=== PATIENT | female | born 1955 | race African-American/Black ===

== ENCOUNTER 2016-08-04 07:44 | Day surgery (SDC) | payer OTHER, MEDICAID ==
[~2016-08-04] VITALS: Ht 149.9 cm; Wt 68.0 kg
[~2016-08-04 07:44] MED LIST: ALBU90AE IH; AMLO2.5T45 PO; CHOL100046 PO; DIPH25CA83 PO; MULT-1146 PO; NAPR-681 PO; OMEG1CAP17 PO; ZOLP10TA6 PO
[2016-08-04 08:55] LABS: BASOPHILS % 0.8 % (0.0-2.0); EOSINOPHILS % 4.1 % (0.0-5.0); HEMATOCRIT. 43.9 % (36.0-48.0); LYMPHOCYTES % 25.8 % (20.0-50.0); MEAN CORPUSCULAR HEMOGLOBIN 30.3 pg (28.0-32.0); MEAN CORPUSCULAR HGB CONC 34.1 g/dL (31.0-37.0); MEAN CORPUSCULAR VOLUME 88.8 fL (81.0-99.0); MEAN PLATELET VOLUME 9.6 fl (7.4-10.4); MONOCYTES % 14.3 % (2.0-8.0); PLATELET 168 x1000/uL (130-400); RED BLOOD CELL COUNT 4.95 mill/uL (4.2-5.4); RED CELL DISTRIBUTION WIDTH 14.4 % (11.6-14.6); WHITE BLOOD COUNT 9.5 x1000/uL (4.5-11.0)
[2016-08-04] MEDS ORDERED: LACTATED RINGERS 1,000 ML IV SCH (09:00)
[2016-08-04 09:04] LABS: INR 1.1; PROTHROMBIN TIME 11.3 sec
[2016-08-04 09:06] LABS: CLARITY URINE CLEAR (CLEAR); COLOR URINE YELLOW (YELLOW); GLUCOSE URINE NEGATIVE (NEGATIVE); KETONES URINE NEGATIVE (NEGATIVE); LEUKOCYTE ESTERASE URINE TRACE (NEGATIVE); NITRITE URINE NEGATIVE (NEGATIVE); OCCULT BLOOD URINE NEGATIVE (NEGATIVE); PH URINE 6.5 (4.5-8.0); PROTEIN URINE NEGATIVE (NEGATIVE); SPECIFIC GRAVITY URINE 1.005 (1.005-1.030); UROBILINOGEN URINE 0.2 E.U./dL (0.2-1.0)
[2016-08-04 09:07] LABS: ANION GAP 15; CALCIUM 9.2 mg/dL (8.5-10.1); CARBON DIOXIDE 26 mEq/L (21-32); CHLORIDE 108 mEq/L (98-107); INDEX HEMOLYSI 1 (1-3); INDEX ICTERIC 1 (1-4); INDEX LIPEMIC 1 (1-3); UREA NITROGEN BLOOD 9 mg/dL (7-21); eGFR > 60 mL/min (>60)
[2016-08-04 09:54] LABS: BACTERIA URINE TRACE; RBC URINE 0-2 /hpf (0-2)
[2016-08-04 09:55] LABS: SQUAMOUS EPITHELIAL CELL URINE 1+ /lpf (RARE/1+); UCG SCREEN NEGATIVE
[2016-08-04] MEDS ORDERED: ONDANSETRON HCL 4MG/2ML VIAL ONE (10:28)
[2016-08-04] MEDS ORDERED: CEFAZOLIN SODIUM 1000MG/VIAL ONE (10:28)
[2016-08-04] MEDS ORDERED: DEXAMETHASONE 4MG/ML 1ML VIAL ONE (10:28)
[2016-08-04] MEDS ORDERED: LABETALOL HCL 5MG/ML VIAL 20ML IV ONE (10:30)
[2016-08-04] MEDS ORDERED: ONDANSETRON HCL 4MG/2ML VIAL IV PRN (10:45)
[2016-08-04] MEDS ORDERED: MEPERIDINE HCL/PF 25MG/ML CPJ IV PRN (10:45)
[2016-08-04] MEDS ORDERED: LABETALOL HCL 20MG/4ML CARPUJECT IV PRN (10:45)
[2016-08-04] MEDS: HYDROMORPHONE HCL/PF 2MG/ML CPJ IV PRN ×3 (11:21→11:40)
[2016-08-04 11:40] VITALS: BP 142/64
== END 2016-08-04 14:20 | disposition home or self-care (01) ==
LOC: OR 07:44
PROVIDERS: ATTEND Obstetrics & Gynecology Obstetrics
DX: N95.0 Postmenopausal bleeding (principal); I10 Essential (primary) hypertension; N88.8 Other specified noninflammatory disorders of cervix uteri; F17.210 Nicotine dependence, cigarettes, uncomplicated
CPT/HCPCS: 36415; 58120; 80048; 81001; 81025; 85025; 85610; 85730; 88305; 93005; J0690; J1100; J1170; J2405; J3490; J7120

== ENCOUNTER → 2017-05-18 | Outpatient (CLI) | payer MEDICARE, MEDICAID | END | disposition home or self-care (01) | LOC: US 08:17 | PROVIDERS: ATTEND Internal Medicine Gastroenterology | DX: R10.9 Unspecified abdominal pain (principal); B19.20 Unspecified viral hepatitis C without hepatic coma | CPT/HCPCS: 76700 ==

== ENCOUNTER 2017-11-05 01:48 | Emergency (ER) | payer OTHER, MEDICAID ==
[~2017-11-05] VITALS: Ht 149.9 cm; Wt 63.0 kg
[2017-11-05] MEDS ORDERED: KETOROLAC 30MG/ML VIAL IM ONE (05:15)
[2017-11-05 06:43] VITALS: BP 150/72
== END 2017-11-05 10:12 | disposition home or self-care (01) ==
LOC: ER 10:10
DX: M54.41 Lumbago with sciatica, right side (principal); G89.29 Other chronic pain
CPT/HCPCS: 96372; 99283; J1885

== ENCOUNTER → 2018-11-10 | Outpatient (CLI) | payer MEDICARE, MEDICAID | END | disposition home or self-care (01) | LOC: US 07:58 | PROVIDERS: ATTEND Internal Medicine Gastroenterology | DX: B18.2 Chronic viral hepatitis C (principal); R10.9 Unspecified abdominal pain | CPT/HCPCS: 76700 ==

== ENCOUNTER → 2019-01-11 | Outpatient (CLI) | payer MEDICARE, MEDICAID ==
[~2019-01-11] MED LIST changes: +ATOR10TA69 MT; +FURO40TA5 MT; +LOSA50TA41 MT; +LUBI24CA5 MT; +TOLT4CAP13 MT
== END | disposition home or self-care (01) ==
LOC: MRI 11:03
PROVIDERS: ATTEND Internal Medicine Nephrology
DX: M51.36 Other intervertebral disc degeneration, lumbar region (principal); M48.061 Spinal stenosis, lumbar region without neurogenic claudication; M41.86 Other forms of scoliosis, lumbar region
CPT/HCPCS: 72148

== ENCOUNTER 2019-01-19 08:06 | Inpatient (IN) | payer MEDICARE, MEDICAID ==
[~2019-01-19] VITALS: Ht 149.9 cm; Wt 56.7 kg
[2019-01-19] MEDS ORDERED: HYDROCODONE/ACETAMINOPHEN 5/325MG TABLET PO ONE (10:15)
[2019-01-19] MEDS ORDERED: ONDANSETRON 4MG ODT PO ONE (10:15)
[2019-01-19 10:39] LABS: CLARITY URINE TURBID (CLEAR); COLOR URINE YELLOW (YELLOW); KETONES URINE NEGATIVE (NEGATIVE); LEUKOCYTE ESTERASE URINE 3+ (NEGATIVE); NITRITE URINE NEGATIVE (NEGATIVE); OCCULT BLOOD URINE 2+ (NEGATIVE); PH URINE 6.5 (4.5-8.0); PROTEIN URINE 2+ (NEGATIVE); SPECIFIC GRAVITY URINE 1.008 (1.005-1.030); UROBILINOGEN URINE 0.2 E.U./dL (0.2-1.0)
[2019-01-19 10:55] LABS: BASOPHILS % 0.4 % (0.0-2.0); EOSINOPHILS % 0.3 % (0.0-5.0); HEMATOCRIT. 31.5 % (36.0-48.0); HEMOGLOBIN. 10.7 g/dL (12.0-16.0); LYMPHOCYTES % 8.3 % (20.0-50.0); MEAN CORPUSCULAR HEMOGLOBIN 30.6 pg (28.0-32.0); MEAN CORPUSCULAR VOLUME 89.5 fL (81.0-99.0); MEAN PLATELET VOLUME 7.8 fl (7.4-10.4); MONOCYTES % 13.2 % (2.0-8.0); NEUTROPHILS % 77.8 % (40.0-76.0); PLATELET 408 x1000/uL (130-400); RED BLOOD CELL COUNT 3.51 mill/uL (4.2-5.4); RED CELL DISTRIBUTION WIDTH 16.3 % (11.6-14.6)
[2019-01-19 11:02] LABS: CHLORIDE 104 mEq/L (98-107)
[2019-01-19] MEDS ORDERED: CEFTRIAXONE 1 G PREMIX 50 ML IV ONE (13:15)
[2019-01-19] MEDS ORDERED: CEFTRIAXONE 1,000 MG in DEXTROSE 5% WATER 50 ML IV NR (14:00)
[2019-01-19] MEDS ORDERED: NITROGLYCERIN 0.4MG TABLET SL SL PRN (15:45)
[2019-01-19] MEDS ORDERED: CLONIDINE 0.1MG TABLET PO PRN (15:45)
[2019-01-19] MEDS ORDERED: KETOROLAC 15MG/ML VIAL IV PRN (15:45)
[2019-01-19] MEDS ORDERED: MAGNESIUM/ALUMINUM HYDROXIDE/SIMETHICONE 30ML UDC PO PRN (15:45)
[2019-01-19] MEDS ORDERED: DOCUSATE SODIUM 100MG CAPSULE PO PRN (15:45)
[2019-01-19] MEDS ORDERED: ONDANSETRON HCL 4MG/2ML INJ IV PRN (15:45)
[2019-01-19] MEDS ORDERED: ZOLPIDEM TARTRATE 5MG TABLET PO PRN (15:45)
[2019-01-19] MEDS ORDERED: GUAIFENESIN 200MG/10ML SUGAR FREE UDC PO PRN (15:45)
[2019-01-19] MEDS ORDERED: TRAMADOL 50MG TABLET PO PRN (15:45)
[2019-01-19] MEDS ORDERED: IPRATROPIUM/ALBUTEROL 0.5-3(2.5)MG/3ML NEB NEB PRN (15:45)
[2019-01-19] MEDS ORDERED: ACETAMINOPHEN 325MG TABLET PO PRN (15:45)
[2019-01-19] MEDS ORDERED: LORAZEPAM 0.5MG TABLET PO PRN (15:45)
[2019-01-19 16:00] VITALS: BP 122/60
[2019-01-19 17:07] VITALS: BP 128/67
[2019-01-19 17:46] LABS: FOLIC ACID (FOLATE) SERUM 7.7 ng/mL (>5.38)
[2019-01-19 17:51] LABS: *AMPHETAMINES SCREEN URINE NEGATIVE (NEGATIVE); *BARBITURATES SCREEN URINE NEGATIVE (NEGATIVE)
[2019-01-19 17:52] LABS: *BENZODIAZEPINES SCREEN URINE NEGATIVE (NEGATIVE); *COCAINE SCREEN URINE NEGATIVE (NEGATIVE); CANNABINOID URINE SCREEN PRESUMTIVE POSITIVE (NEGATIVE); METHADONE URINE SCREEN NEGATIVE (NEGATIVE); OPIATES URINE SCREEN PRESUMTIVE POSITIVE (NEGATIVE); PHENCYCLIDINE URINE SCREEN NEGATIVE (NEGATIVE)
[2019-01-19] MEDS: ENOXAPARIN 40MG/0.4ML SYR SUBCUT SCH (18:30)
[2019-01-19] MEDS ORDERED: DEXTROSE 50% WATER 50ML SYRINGE IV PRN (18:45)
[2019-01-19 20:00] VITALS: BP 117/62
[2019-01-19] MEDS: FAMOTIDINE 20MG TABLET PO SCH (20:53)
[2019-01-19] MEDS: BLOOD SUGAR DIAGNOSTIC STRIP TEST SCH (20:59)
[2019-01-19] MEDS: INSULIN LISPRO 100 UNITS/ML SUBCUT SCH (21:00)
[2019-01-20 02:46] VITALS: BP 116/55
[2019-01-20 04:00] VITALS: BP 125/59
[2019-01-20] MEDS: MORPHINE SULFATE 2 MG/ML CPJ (NOT FOR IM USE) IV PRN ×2 (05:01→09:11)
[2019-01-20] MEDS: BLOOD SUGAR DIAGNOSTIC STRIP TEST SCH ×4 (06:44→21:33)
[2019-01-20] MEDS: INSULIN LISPRO 100 UNITS/ML SUBCUT SCH ×4 (07:50→21:28)
[2019-01-20 08:00] VITALS: BP 135/63
[2019-01-20] MEDS: FAMOTIDINE 20MG TABLET PO SCH ×2 (09:10→20:34)
[2019-01-20] MEDS: BACLOFEN 10MG TABLET PO SCH ×3 (09:11→21:29)
[2019-01-20] MEDS: PREGABALIN 50 MG CAPSULE PO SCH ×2 (10:10→20:33)
[2019-01-20 12:00] VITALS: BP 133/64
[2019-01-20] MEDS ORDERED: CEFTRIAXONE 1,000 MG in DEXTROSE 5% WATER 50 ML IV SCH (13:00)
[2019-01-20 16:00] VITALS: BP 126/65
[2019-01-20] MEDS: ENOXAPARIN 40MG/0.4ML SYR SUBCUT SCH (17:00)
[2019-01-20 20:00] VITALS: BP 119/59
[2019-01-20] MEDS ORDERED: POTASSIUM CHLORIDE INJ 20 MEQ in DEXT 5% WATER 500 ML IV NR (21:30)
[2019-01-21] VITALS: BP 147/73
[2019-01-21 04:00] VITALS: BP 141/70
[2019-01-21] MEDS: BACLOFEN 10MG TABLET PO SCH ×5 (05:56→21:35)
[2019-01-21] MEDS: BLOOD SUGAR DIAGNOSTIC STRIP TEST SCH ×4 (07:37→21:34)
[2019-01-21] MEDS: INSULIN LISPRO 100 UNITS/ML SUBCUT SCH ×4 (07:37→21:34)
[2019-01-21 08:00] VITALS: BP 115/64
[2019-01-21] MEDS: FAMOTIDINE 20MG TABLET PO SCH ×2 (09:34→20:57)
[2019-01-21] MEDS: PREGABALIN 50 MG CAPSULE PO SCH ×2 (09:34→20:57)
[2019-01-21 12:00] VITALS: BP 103/53
[2019-01-21] MEDS: CEFTRIAXONE 1,000 MG in DEXTROSE 5% WATER 50 ML IV SCH (15:33)
[2019-01-21 16:00] VITALS: BP 83/56
[2019-01-21] MEDS: ENOXAPARIN 40MG/0.4ML SYR SUBCUT SCH ×2 (16:49→16:56)
[2019-01-21] MEDS: DEXAMETHASONE 4MG/ML 1ML VIAL IV SCH (18:12)
[2019-01-21 20:00] VITALS: BP 120/70
[2019-01-22] VITALS: BP 132/68
[2019-01-22] MEDS: MORPHINE SULFATE 2 MG/ML CPJ (NOT FOR IM USE) IV PRN (00:41)
[2019-01-22] MEDS: DEXAMETHASONE 4MG/ML 1ML VIAL IV SCH ×3 (00:41→11:43)
[2019-01-22 04:00] VITALS: BP 130/64
[2019-01-22] MEDS: BACLOFEN 10MG TABLET PO SCH ×2 (05:56→13:31)
[2019-01-22] MEDS: BLOOD SUGAR DIAGNOSTIC STRIP TEST SCH ×2 (07:52→12:21)
[2019-01-22 08:00] VITALS: BP 131/71
[2019-01-22] MEDS: CEFTRIAXONE 1,000 MG in DEXTROSE 5% WATER 50 ML IV SCH (08:00)
[2019-01-22] MEDS: PREGABALIN 50 MG CAPSULE PO SCH (08:01)
[2019-01-22] MEDS: FAMOTIDINE 20MG TABLET PO SCH (08:01)
[2019-01-22] MEDS: INSULIN LISPRO 100 UNITS/ML SUBCUT SCH ×2 (08:12→12:23)
[2019-01-22 12:00] VITALS: BP 135/72
[2019-01-22 13:54] VITALS: BP 138/75
[2019-01-22 14:12] LABS: A/G RATIO 0.8 (0.7-1.7); ALBUMIN 2.7 g/dL (2.9-4.4); ALPHA-1-GLOBULIN 0.3 g/dL (0.0-0.4); ALPHA-2-GLOBULIN 1.2 g/dL (0.4-1.0); BETA GLOBULIN 0.8 g/dL (0.7-1.3); GAMMA GLOBULINS 1.3 g/dL (0.4-1.8); GLOBULIN TOTAL 3.6 g/dL (2.2-3.9); M-SPIKE Not Observed g/dL (Not Observed); TOTAL PROTEIN SERUM 6.3 g/dL (6.0-8.5)
== END 2019-01-22 14:32 | disposition home or self-care (01) | DRG 551 ==
LOC: ER 08:06 → 6EST 13:11 → ENRESERV 14:48
PROVIDERS: ADMIT Internal Medicine; ATTEND Internal Medicine
DX: M48.061 Spinal stenosis, lumbar region without neurogenic claudication (principal); E43 Unspecified severe protein-calorie malnutrition; N39.0 Urinary tract infection, site not specified; R65.10 Systemic inflammatory response syndrome (SIRS) of non-infectious origin without acute organ dysfunction; M47.816 Spondylosis without myelopathy or radiculopathy, lumbar region; M51.26 Other intervertebral disc displacement, lumbar region; M51.27 Other intervertebral disc displacement, lumbosacral region; D64.9 Anemia, unspecified; E11.51 Type 2 diabetes mellitus with diabetic peripheral angiopathy without gangrene; I10 Essential (primary) hypertension; F17.210 Nicotine dependence, cigarettes, uncomplicated; E78.00 Pure hypercholesterolemia, unspecified; B96.20 Unspecified Escherichia coli [E. coli] as the cause of diseases classified elsewhere; R80.9 Proteinuria, unspecified; M47.817 Spondylosis without myelopathy or radiculopathy, lumbosacral region; E11.40 Type 2 diabetes mellitus with diabetic neuropathy, unspecified; Z79.899 Other long term (current) drug therapy; Z68.25 Body mass index [BMI] 25.0-25.9, adult
CPT/HCPCS: 36415; 72148; 72195; 76770; 80061; 80305; 81003; 82607; 82746; 82962; 83036; 83540; 83550; 84155; 84165; 87077; 87186; 93005; 93970; 96365; 99285; C1893; J0696; J1100; J1650; J1815; J1885; J2270; J3480; J7060; Q0162

== ENCOUNTER → 2019-03-14 | Outpatient (CLI) | payer MEDICARE, MEDICAID | END | disposition home or self-care (01) | LOC: CT 09:39 | PROVIDERS: ATTEND Internal Medicine Nephrology | DX: N32.9 Bladder disorder, unspecified (principal) | CPT/HCPCS: 72193 ==

== ENCOUNTER 2019-03-27 11:12 | Day surgery (SDC) | payer MEDICARE, MEDICAID ==
[~2019-03-27] VITALS: Ht 149.9 cm; Wt 48.5 kg
[2019-03-27] MEDS ORDERED: HYDROCODONE/ACETAMINOPHEN 5/325MG TABLET PO PRN ×2 (11:15→14:30)
[2019-03-27] MEDS ORDERED: MIDAZOLAM HCL 2 MG/2 ML VIAL ONE (11:54)
[2019-03-27] MEDS ORDERED: FENTANYL CITRATE/PF 50MCG/ML 2ML VIAL ONE ×2 (11:54→13:52)
[2019-03-27] MEDS ORDERED: PROPOFOL 200MG/20ML VIAL IV ONE (11:54)
[2019-03-27 12:02] LABS: BASOPHILS % 0.8 % (0.0-2.0); EOSINOPHILS % 0.2 % (0.0-5.0); HEMATOCRIT. 28.4 % (36.0-48.0); HEMOGLOBIN. 9.1 g/dL (12.0-16.0); MEAN CORPUSCULAR HEMOGLOBIN 27.8 pg (28.0-32.0); MEAN CORPUSCULAR VOLUME 86.5 fL (81.0-99.0); MEAN PLATELET VOLUME 7.2 fl (7.4-10.4); MONOCYTES % 9.3 % (2.0-8.0); NEUTROPHILS % 79.7 % (40.0-76.0); PLATELET 484 x1000/uL (130-400); RED BLOOD CELL COUNT 3.29 mill/uL (4.2-5.4); RED CELL DISTRIBUTION WIDTH 17.8 % (11.6-14.6)
[2019-03-27] MEDS ORDERED: BACITRACIN 15GM TUBE TOP ONE (12:02)
[2019-03-27] MEDS ORDERED: LIDOCAINE HCL 1% 20ML VIAL (Pyxis) INJ ONE (12:02)
[2019-03-27] MEDS ORDERED: HEPARIN SODIUM 1,000 UNIT/1ML VIAL IV ONE (12:03)
[2019-03-27] MEDS ORDERED: THROMBIN (BOVINE) 5000 UNITS/VIAL TOP ONE ×2 (12:03→12:04)
[2019-03-27 12:04] LABS: CHLORIDE 104 mEq/L (98-107)
[2019-03-27] MEDS ORDERED: NORMAL SALINE 0.9% 10 ML SYR ONE (12:04)
[2019-03-27] MEDS ORDERED: BUPIVACAINE HCL/PF 0.5% (5MG/ML) 10ML ONE ×3 (12:04→13:32)
[2019-03-27 12:05] LABS: INR 1.1; PARTIAL THROMBOPLASTIN TIME 34.3 sec (23.4-31.0); PROTHROMBIN TIME 11.4 sec (9.6-11.0)
[2019-03-27] MEDS ORDERED: BACITRACIN 50,000 UNITS/VIAL ONE (12:05)
[2019-03-27] MEDS ORDERED: MIRT15TA6 PO (13:00)
[2019-03-27] MEDS ORDERED: DAPA5TAB PO (13:00)
[2019-03-27] MEDS ORDERED: ROSU20TA2 PO (13:00)
[2019-03-27] MEDS ORDERED: OXYB5TAB16 PO (13:00)
[2019-03-27] MEDS ORDERED: HEPARIN 1000 UNITS/ML 10ML ONE (13:52)
[2019-03-27] MEDS ORDERED: ESMOLOL HCL 10MG/ML 10ML VIAL IV ONE (13:52)
[2019-03-27] MEDS ORDERED: PHENYLEPHRINE HCL 10 MG/ML 1ML (IV VIAL) IV ONE (13:52)
[2019-03-27] MEDS ORDERED: ONDANSETRON HCL 4MG/2ML INJ IV PRN (14:30)
[2019-03-27] MEDS: FENTANYL CITRATE/PF 50MCG/ML 2ML VIAL IV PRN ×4 (14:35→15:02)
[2019-03-27 16:20] VITALS: BP 100/56
== END 2019-03-27 16:40 | disposition home or self-care (01) ==
LOC: OR 11:12
PROVIDERS: ATTEND Surgery Vascular Surgery
DX: I70.262 Atherosclerosis of native arteries of extremities with gangrene, left leg (principal); E78.5 Hyperlipidemia, unspecified; I10 Essential (primary) hypertension; E11.9 Type 2 diabetes mellitus without complications; C53.9 Malignant neoplasm of cervix uteri, unspecified; F17.200 Nicotine dependence, unspecified, uncomplicated; Z79.899 Other long term (current) drug therapy; Z98.890 Other specified postprocedural states
CPT/HCPCS: 35302; 35371; 35372; 36415; 80048; 82962; 85025; 85610; 85730; 88304; 88311; 93005; J1644; J2250; J2370; J2704; J3010; J3490

== ENCOUNTER 2019-04-10 12:08 | Inpatient (IN) | payer MEDICARE, MEDICAID ==
[~2019-04-10] VITALS: Ht 149.9 cm; Wt 68.1 kg
[~2019-04-10 12:08] MED LIST changes: +DAPA5TAB PO; +MIRT15TA6 PO; +OXYB5TAB16 PO; +ROSU20TA2 PO
[2019-04-10 13:42] VITALS: BP 126/58
[2019-04-10] MEDS ORDERED: LORAZEPAM 0.5MG TABLET PO PRN (15:30)
[2019-04-10] MEDS ORDERED: CLONIDINE 0.1MG TABLET PO PRN (15:30)
[2019-04-10] MEDS ORDERED: ONDANSETRON HCL 4MG/2ML INJ IV PRN (15:30)
[2019-04-10] MEDS ORDERED: ZOLPIDEM TARTRATE 5MG TABLET PO PRN (15:30)
[2019-04-10] MEDS ORDERED: DIPHENHYDRAMINE 50MG/ML VIAL IV PRN (15:30)
[2019-04-10] MEDS ORDERED: NITROGLYCERIN 0.4MG TABLET SL SL PRN (15:30)
[2019-04-10] MEDS ORDERED: ACETAMINOPHEN 325MG TABLET PO PRN (15:30)
[2019-04-10] MEDS ORDERED: GUAIFENESIN 200MG/10ML SUGAR FREE UDC PO PRN (15:30)
[2019-04-10] MEDS ORDERED: IPRATROPIUM/ALBUTEROL 0.5-3(2.5)MG/3ML NEB NEB PRN (15:30)
[2019-04-10] MEDS ORDERED: MAGNESIUM/ALUMINUM HYDROXIDE/SIMETHICONE 30ML UDC PO PRN (15:30)
[2019-04-10] MEDS ORDERED: DOCUSATE SODIUM 100MG CAPSULE PO PRN (15:30)
[2019-04-10] MEDS ORDERED: DEXTROSE 50% WATER 50ML SYRINGE IV PRN (15:30)
[2019-04-10] MEDS ORDERED: MORPHINE SULFATE 4 MG/ML CPJ (NOT FOR IM USE) IV PRN (15:30)
[2019-04-10 16:00] VITALS: BP 127/60
[2019-04-10 17:23] VITALS: BP 114/56
[2019-04-10 17:49] LABS: CHLORIDE 110 mEq/L (98-107)
[2019-04-10] MEDS ORDERED: INSULIN LISPRO 100 UNITS/ML SUBCUT SCH (17:50)
[2019-04-10 17:58] LABS: BASOPHILS % 0.4 % (0.0-2.0); EOSINOPHILS % 2.2 % (0.0-5.0); HEMATOCRIT. 25.9 % (36.0-48.0); HEMOGLOBIN. 8.3 g/dL (12.0-16.0); INR 1.1; LYMPHOCYTES % 11.9 % (20.0-50.0); MEAN CORPUSCULAR HEMOGLOBIN 26.9 pg (28.0-32.0); MEAN CORPUSCULAR VOLUME 83.7 fL (81.0-99.0); MONOCYTES % 9.6 % (2.0-8.0); NEUTROPHILS % 75.9 % (40.0-76.0); PLATELET 484 x1000/uL (130-400); PROTHROMBIN TIME 11.2 sec (9.6-11.0); RED BLOOD CELL COUNT 3.09 mill/uL (4.2-5.4); RED CELL DISTRIBUTION WIDTH 17.6 % (11.6-14.6); TOTAL IRON BINDING CAPACITY 197 ug/dL (250-450)
[2019-04-10 18:12] LABS: FOLIC ACID (FOLATE) SERUM 2.6 ng/mL (>5.38)
[2019-04-10] MEDS: TRAMADOL 50MG TABLET PO PRN (18:39)
[2019-04-10] MEDS ORDERED: POTASSIUM CHLORIDE 20MEQ/PACKET PO NR (19:26)
[2019-04-10 20:00] VITALS: BP 138/69
[2019-04-10] MEDS: PREGABALIN 25MG CAPSULE PO SCH (20:33)
[2019-04-10] MEDS: FAMOTIDINE 20MG TABLET PO SCH (20:33)
[2019-04-10] MEDS ORDERED: NA PHOS,M-B/NA PHOS,DI-BA ENEMA 118ML PR PRN (21:00)
[2019-04-10] MEDS ORDERED: BLOOD SUGAR DIAGNOSTIC STRIP TEST SCH (21:00)
[2019-04-10] MEDS ORDERED: FOLIC ACID 1 MG in SODIUM CHLORIDE 0.9% 500 ML IV NR (21:00)
[2019-04-10] MEDS ORDERED: VANCOMYCIN 1 G PREMIX 200 ML IV NR (22:00)
[2019-04-10] MEDS ORDERED: MELO-104 PO (22:45)
[2019-04-10] MEDS: BACLOFEN 10MG TABLET PO SCH (23:12)
[2019-04-11] VITALS (7 sets, daily range): BP systolic 102–131; BP diastolic 52–80
[2019-04-11] MEDS: PIPERACILLIN/TAZOBACTAM 3.375 G in DEXT 5% WATER 100 ML IV SCH ×4 (01:15→19:26)
[2019-04-11] MEDS: TRAMADOL 50MG TABLET PO PRN (01:31)
[2019-04-11] MEDS: BACLOFEN 10MG TABLET PO SCH ×3 (05:56→21:03)
[2019-04-11 07:23] LABS: BASOPHILS % 0.3 % (0.0-2.0); EOSINOPHILS % 2.5 % (0.0-5.0); HEMOGLOBIN. 8.1 g/dL (12.0-16.0); LYMPHOCYTES % 10.2 % (20.0-50.0); MEAN CORPUSCULAR HEMOGLOBIN 27.5 pg (28.0-32.0); MEAN CORPUSCULAR VOLUME 84.2 fL (81.0-99.0); MEAN PLATELET VOLUME 8.1 fl (7.4-10.4); PLATELET 424 x1000/uL (130-400); RED BLOOD CELL COUNT 2.96 mill/uL (4.2-5.4); RED CELL DISTRIBUTION WIDTH 17.9 % (11.6-14.6)
[2019-04-11 07:43] LABS: CHLORIDE 115 mEq/L (98-107)
[2019-04-11 07:55] LABS: PHOSPHORUS 2.5 mg/dL (2.5-4.9)
[2019-04-11 07:56] LABS: LDL CHOLESTEROL 33 mg/dL (5-100)
[2019-04-11 07:57] LABS: HDL CHOLESTEROL 33 mg/dL (40-59)
[2019-04-11] MEDS: FAMOTIDINE 20MG TABLET PO SCH ×2 (08:45→21:00)
[2019-04-11] MEDS: FOLIC ACID 1MG TABLET PO SCH (08:45)
[2019-04-11] MEDS: PREGABALIN 25MG CAPSULE PO SCH ×2 (08:45→21:00)
[2019-04-11] MEDS: ENOXAPARIN 40MG/0.4ML SYR SUBCUT SCH (09:00)
[2019-04-11] MEDS: AMLODIPINE 2.5MG TABLET PO SCH (09:01)
[2019-04-11] MEDS ORDERED: HEPARIN SODIUM 1,000 UNIT/1ML VIAL IV ONE (13:12)
[2019-04-11] MEDS ORDERED: BACITRACIN 15GM TUBE TOP ONE (13:12)
[2019-04-11] MEDS ORDERED: LIDOCAINE HCL 1% 20ML VIAL (Pyxis) INJ ONE (13:12)
[2019-04-11] MEDS ORDERED: THROMBIN (BOVINE) 5000 UNITS/VIAL TOP ONE (13:12)
[2019-04-11] MEDS ORDERED: BUPIVACAINE HCL/PF 0.5% (5MG/ML) 10ML ONE (13:13)
[2019-04-11] MEDS: VANCOMYCIN 500 MG PREMIX 100 ML IV SCH ×2 (13:27→21:40)
[2019-04-11] MEDS: DEXT 5%/0.9% NACL 1,000 ML IV SCH ×2 (14:21→18:48)
[2019-04-11 15:45] LABS: BG CARBOXYHEMOGLOBIN 0.3 % (0.5-1.5); BG DEOXYHEMOGLOBIN 3.4 % (0.0-5.0); BG FRACTION INSPIRED OXYGEN 21; BG HCO3 ACT 22.8 mmol/L (22.0-26.0); BG OXYGEN SATURATION 96.6 % (92.0-98.5); BG OXYHEMOGLOBIN 96.3 % (94.0-97.0); BG PH 7.444 (7.350-7.450); BG PO2 95.3 mmHg (75.0-100.0); BG SAMPLE SITE RIGHT RADIAL; BG TOTAL HEMOGLOBIN 9.3 g/dL (12.0-18.0); BG VENT MODE ROOM AIR
[2019-04-11] MEDS: NYSTATIN POWDER 15GM TOP SCH (18:49)
[2019-04-11] MEDS: FOLIC ACID/VITAMIN B COMP W-C TABLET PO SCH (21:00)
[2019-04-12] VITALS (11 sets, daily range): BP systolic 96–157; BP diastolic 48–100
[2019-04-12] MEDS: PIPERACILLIN/TAZOBACTAM 3.375 G in DEXT 5% WATER 100 ML IV SCH ×4 (00:17→18:07)
[2019-04-12] MEDS: BACLOFEN 10MG TABLET PO SCH ×3 (05:14→23:12)
[2019-04-12 07:50] LABS: HEMATOCRIT. 28.3 % (36.0-48.0); HEMOGLOBIN. 8.9 g/dL (12.0-16.0); MEAN CORPUSCULAR HEMOGLOBIN 27.4 pg (28.0-32.0); MEAN CORPUSCULAR VOLUME 86.6 fL (81.0-99.0); MEAN PLATELET VOLUME 7.8 fl (7.4-10.4); PLATELET 586 x1000/uL (130-400); RED BLOOD CELL COUNT 3.26 mill/uL (4.2-5.4); RED CELL DISTRIBUTION WIDTH 17.7 % (11.6-14.6)
[2019-04-12 08:06] LABS: CHLORIDE 132 mEq/L (98-107)
[2019-04-12 08:16] LABS: CREATINE KINASE 72 IU/L (26-192)
[2019-04-12] MEDS: FOLIC ACID 1MG TABLET PO SCH (09:00)
[2019-04-12] MEDS ORDERED: CLONIDINE HCL 0.3MG/24HR PATCH TD NR (09:00)
[2019-04-12] MEDS: PREGABALIN 25MG CAPSULE PO SCH ×2 (09:00→23:13)
[2019-04-12] MEDS: FAMOTIDINE 20MG TABLET PO SCH ×2 (09:00→23:12)
[2019-04-12] MEDS: AMLODIPINE 2.5MG TABLET PO SCH (09:00)
[2019-04-12] MEDS: FOLIC ACID/VITAMIN B COMP W-C TABLET PO SCH (09:00)
[2019-04-12] MEDS: ENOXAPARIN 40MG/0.4ML SYR SUBCUT SCH (09:23)
[2019-04-12] MEDS: NYSTATIN POWDER 15GM TOP SCH ×3 (09:24→17:21)
[2019-04-12] MEDS: VANCOMYCIN 500 MG PREMIX 100 ML IV SCH (09:27)
[2019-04-12 10:32] LABS: PLATELET ESTIMATE INCREASED
[2019-04-12 11:23] LABS: CLARITY URINE CLOUDY (CLEAR); COLOR URINE YELLOW (YELLOW); KETONES URINE NEGATIVE (NEGATIVE); LEUKOCYTE ESTERASE URINE 3+ (NEGATIVE); NITRITE URINE NEGATIVE (NEGATIVE); OCCULT BLOOD URINE 2+ (NEGATIVE); PH URINE 5.5 (4.5-8.0); PROTEIN URINE NEGATIVE (NEGATIVE); SPECIFIC GRAVITY URINE 1.004 (1.005-1.030); UROBILINOGEN URINE 0.2 E.U./dL (0.2-1.0)
[2019-04-12] MEDS: ENALAPRIL 1.25MG/ML VIAL 1ML IV SCH ×2 (12:30→18:07)
[2019-04-12] MEDS: DEXTROSE 5% WATER 1,000 ML IV SCH ×2 (12:30→23:13)
[2019-04-12] MEDS: LACTULOSE 20G/30ML UDC PO SCH ×2 (14:15→23:12)
[2019-04-12] MEDS ORDERED: AMIKACIN SULFATE 500 MG in SODIUM CHLORIDE 0.9% 100 ML IV NR (16:30)
[2019-04-12] MEDS: FLUCONAZOLE 400MG/200ML BAG 200 ML IV SCH (17:20)
[2019-04-12 18:18] LABS: T4 FREE 0.93 ng/dL (0.76-1.46)
[2019-04-13] VITALS (12 sets, daily range): BP systolic 80–123; BP diastolic 50–78
[2019-04-13] MEDS: PIPERACILLIN/TAZOBACTAM 3.375 G in DEXT 5% WATER 100 ML IV SCH ×4 (00:30→17:40)
[2019-04-13] MEDS: LACTULOSE 20G/30ML UDC PO SCH ×4 (06:00→22:00)
[2019-04-13] MEDS: ENALAPRIL 1.25MG/ML VIAL 1ML IV SCH ×4 (06:00→17:40)
[2019-04-13 06:29] LABS: HEMOGLOBIN. 9.4 g/dL (12.0-16.0); MEAN CORPUSCULAR HEMOGLOBIN 27.6 pg (28.0-32.0); MEAN CORPUSCULAR VOLUME 87.7 fL (81.0-99.0); MEAN PLATELET VOLUME 7.7 fl (7.4-10.4); PLATELET 512 x1000/uL (130-400); RED BLOOD CELL COUNT 3.42 mill/uL (4.2-5.4); RED CELL DISTRIBUTION WIDTH 18.5 % (11.6-14.6)
[2019-04-13] MEDS: BACLOFEN 10MG TABLET PO SCH ×3 (06:43→22:00)
[2019-04-13] MEDS: DEXTROSE 5% WATER 1,000 ML IV SCH (07:30)
[2019-04-13] MEDS ORDERED: DEXTROSE 5% WATER 1,000 ML IV SCH ×2 (08:00→13:00)
[2019-04-13] MEDS: AMLODIPINE 2.5MG TABLET PO SCH (09:00)
[2019-04-13] MEDS: NYSTATIN POWDER 15GM TOP SCH ×3 (09:00→17:40)
[2019-04-13] MEDS: LEVOTHYROXINE SODIUM 100 MCG/ VIAL IV SCH (09:00)
[2019-04-13] MEDS: FOLIC ACID 1MG TABLET PO SCH (09:00)
[2019-04-13] MEDS: FOLIC ACID/VITAMIN B COMP W-C TABLET PO SCH (09:00)
[2019-04-13] MEDS: PREGABALIN 25MG CAPSULE PO SCH ×2 (09:00→21:00)
[2019-04-13] MEDS: FAMOTIDINE 20MG TABLET PO SCH ×2 (09:00→21:00)
[2019-04-13 10:02] LABS: PLATELET ESTIMATE INCREASED
[2019-04-13] MEDS ORDERED: LORAZEPAM 2MG/ML CPJ ONE (10:18)
[2019-04-13] MEDS ORDERED: LORAZEPAM 2MG/ML CPJ IV NR (10:18)
[2019-04-13] MEDS ORDERED: LIDOCAINE HCL 1% 20ML VIAL (Pyxis) INJ ONE (10:38)
[2019-04-13] MEDS ORDERED: SODIUM BICARBONATE 4% (2.4MEQ) 5ML VIAL IV ONE (10:38)
[2019-04-13] MEDS ORDERED: POTASSIUM CHLORIDE IV SCH ×3 (13:00→22:00)
[2019-04-13] MEDS ORDERED: DEXTROSE 5% IV SCH ×3 (13:00→22:00)
[2019-04-13] MEDS ORDERED: WATER IV SCH ×3 (13:00→22:00)
[2019-04-13] MEDS: ENOXAPARIN 40MG/0.4ML SYR SUBCUT SCH (13:43)
[2019-04-13] MEDS ORDERED: CLINDAMYCIN 600 MG in DEXTROSE 5% WATER 50 ML IV SCH (15:00)
[2019-04-13] MEDS: FLUCONAZOLE 400MG/200ML BAG 200 ML IV SCH (15:29)
[2019-04-13] MEDS: CLINDAMYCIN 600MG PREMIX 50 ML IV SCH (17:39)
[2019-04-13] MEDS: VANCOMYCIN 750 MG PREMIX 150 ML IV SCH ×2 (19:31)
[2019-04-14] VITALS (62 sets, daily range): BP systolic 53–170; BP diastolic 31–91
[2019-04-14] MEDS: CLINDAMYCIN 600MG PREMIX 50 ML IV SCH ×4 (01:16→23:38)
[2019-04-14] MEDS: MEROPENEM 1,000 MG in SODIUM CHLORIDE 0.9% 100 ML IV SCH ×2 (01:27→15:11)
[2019-04-14] MEDS: LACTULOSE 20G/30ML UDC PO SCH ×3 (05:13→21:00)
[2019-04-14] MEDS: BACLOFEN 10MG TABLET PO SCH ×3 (05:13→21:00)
[2019-04-14] MEDS: ENALAPRIL 1.25MG/ML VIAL 1ML IV SCH ×5 (05:13→23:19)
[2019-04-14] MEDS ORDERED: NOREPINEPHRINE 4 MG in DEXT 5% WATER 246 ML IV PRN (08:45)
[2019-04-14] MEDS: PREGABALIN 25MG CAPSULE PO SCH ×2 (09:00→21:00)
[2019-04-14] MEDS: AMLODIPINE 2.5MG TABLET PO SCH (09:00)
[2019-04-14 09:47] LABS: HEMATOCRIT. 27.5 % (36.0-48.0); HEMOGLOBIN. 8.5 g/dL (12.0-16.0); MEAN CORPUSCULAR HEMOGLOBIN 27.2 pg (28.0-32.0); MEAN CORPUSCULAR VOLUME 87.9 fL (81.0-99.0); PLATELET 349 x1000/uL (130-400); RED BLOOD CELL COUNT 3.13 mill/uL (4.2-5.4); RED CELL DISTRIBUTION WIDTH 18.6 % (11.6-14.6)
[2019-04-14 09:56] LABS: CHLORIDE 135 mEq/L (98-107)
[2019-04-14 10:22] LABS: BG BASE EXCESS -7.4 mmol/L (-2.0-2.0); BG CARBOXYHEMOGLOBIN 0.3 % (0.5-1.5); BG DEOXYHEMOGLOBIN 3.5 % (0.0-5.0); BG FRACTION INSPIRED OXYGEN 32; BG HCO3 ACT 15.6 mmol/L (22.0-26.0); BG METHEMOGLOBIN 0.4 % (0.0-1.5); BG OXYGEN SATURATION 96.5 % (92.0-98.5); BG OXYHEMOGLOBIN 95.8 % (94.0-97.0); BG PCO2 24.6 mmHg (35.0-45.0); BG PH 7.421 (7.350-7.450); BG PO2 98.9 mmHg (75.0-100.0); BG SAMPLE SITE RIGHT RADIAL; BG TOTAL HEMOGLOBIN 10.3 g/dL (12.0-18.0); BG VENT MODE NASAL CANNULA
[2019-04-14] MEDS: DEXTROSE 5% WATER 1,000 ML IV SCH ×2 (10:35→18:58)
[2019-04-14] MEDS ORDERED: SODIUM CHLORIDE 0.9% 1,000 ML IV SCH (11:15)
[2019-04-14 11:21] LABS: PLATELET ESTIMATE NORMAL
[2019-04-14] MEDS: ENOXAPARIN 40MG/0.4ML SYR SUBCUT SCH (11:23)
[2019-04-14] MEDS: FOLIC ACID/VITAMIN B COMP W-C TABLET PO SCH (11:23)
[2019-04-14] MEDS: NYSTATIN POWDER 15GM TOP SCH ×3 (11:23→17:00)
[2019-04-14] MEDS: FAMOTIDINE 20MG TABLET PO SCH ×2 (11:23→21:00)
[2019-04-14] MEDS: VANCOMYCIN 750 MG PREMIX 150 ML IV SCH (11:25)
[2019-04-14] MEDS: LEVOTHYROXINE SODIUM 100 MCG/ VIAL IV SCH (11:26)
[2019-04-14] MEDS ORDERED: DIATR MEGLU/DIATRIZOATE SOLN 30ML PO SCH ×2 (12:15→15:15)
[2019-04-14] MEDS: MEROPENEM 500MG in NORMAL SALINE 50ML IV SCH ×2 (13:00→22:53)
[2019-04-14] MEDS ORDERED: PHENYLEPHRINE HCL 10 MG/ML 1ML (IV VIAL) IV ONE (16:57)
[2019-04-14 17:25] LABS: BG BASE EXCESS -6.2 mmol/L (-2.0-2.0); BG CARBOXYHEMOGLOBIN 0.3 % (0.5-1.5); BG DEOXYHEMOGLOBIN 0.9 % (0.0-5.0); BG HCO3 ACT 17.9 mmol/L (22.0-26.0); BG METHEMOGLOBIN 0.1 % (0.0-1.5); BG OXYGEN SATURATION 99.1 % (92.0-98.5); BG OXYHEMOGLOBIN 98.7 % (94.0-97.0); BG PCO2 30.4 mmHg (35.0-45.0); BG PH 7.387 (7.350-7.450); BG PO2 254.8 mmHg (75.0-100.0); BG SAMPLE SITE RIGHT RADIAL; BG VENT MODE NASAL CANNULA
[2019-04-14] MEDS ORDERED: PHENYLEPHRINE 20 MG in DEXT 5% WATER 248 ML IV PRN (18:00)
[2019-04-14] MEDS ORDERED: SODIUM CHLORIDE 3% 500ML IV SOLN IV ONE (20:00)
[2019-04-14] MEDS: FLUCONAZOLE 400MG/200ML BAG 200 ML IV SCH (20:14)
[2019-04-14] MEDS ORDERED: SODIUM CHLORIDE 3% 250 ML IV NR (21:00)
[2019-04-14] MEDS: NOREPINEPHRINE 32 MG in DEXT 5% WATER 468 ML IV PRN (21:33)
[2019-04-15] VITALS (98 sets, daily range): BP systolic 78–130; BP diastolic 52–83
[2019-04-15] MEDS: ENALAPRIL 1.25MG/ML VIAL 1ML IV SCH ×4 (05:49→23:28)
[2019-04-15 05:56] LABS: HEMATOCRIT. 28.9 % (36.0-48.0); HEMOGLOBIN. 8.9 g/dL (12.0-16.0); MEAN CORPUSCULAR HEMOGLOBIN 26.5 pg (28.0-32.0); MEAN CORPUSCULAR VOLUME 86.4 fL (81.0-99.0); MEAN PLATELET VOLUME 7.9 fl (7.4-10.4); PLATELET 419 x1000/uL (130-400); RED BLOOD CELL COUNT 3.35 mill/uL (4.2-5.4); RED CELL DISTRIBUTION WIDTH 18.9 % (11.6-14.6)
[2019-04-15] MEDS: LACTULOSE 20G/30ML UDC PO SCH ×3 (06:21→21:52)
[2019-04-15] MEDS: BACLOFEN 10MG TABLET PO SCH ×3 (06:21→21:52)
[2019-04-15 08:19] LABS: NUCLEATED RED BLOOD CELLS 3 /100 WBC
[2019-04-15 08:20] LABS: PLATELET ESTIMATE SLIGHTLY INCREASED
[2019-04-15] MEDS: MEROPENEM 500MG in NORMAL SALINE 50ML IV SCH (08:41)
[2019-04-15] MEDS: LEVOTHYROXINE SODIUM 100 MCG/ VIAL IV SCH (08:41)
[2019-04-15] MEDS: CLINDAMYCIN 600MG PREMIX 50 ML IV SCH (08:41)
[2019-04-15] MEDS: FAMOTIDINE 20MG/2ML VIAL IV SCH (08:41)
[2019-04-15] MEDS: NYSTATIN POWDER 15GM TOP SCH ×3 (08:42→16:56)
[2019-04-15] MEDS: PREGABALIN 25MG CAPSULE PO SCH ×2 (09:00→21:52)
[2019-04-15] MEDS: FOLIC ACID/VITAMIN B COMP W-C TABLET PO SCH (09:00)
[2019-04-15] MEDS: ENOXAPARIN 30MG/0.3ML SYR SUBCUT SCH (10:17)
[2019-04-15] MEDS: METOCLOPRAMIDE HCL 10MG/2ML VIAL IV SCH ×3 (12:02→23:27)
[2019-04-15] MEDS ORDERED: BISACODYL 10MG SUPP PR NR (14:15)
[2019-04-15] MEDS: FLUCONAZOLE 200 MG/100ML BAG 100 ML IV SCH (14:57)
[2019-04-15] MEDS: METRONIDAZOLE 500 MG PREMIX 100 ML IV SCH ×2 (15:49→22:08)
[2019-04-16] VITALS (159 sets, daily range): BP systolic 44–181; BP diastolic 20–109
[2019-04-16] MEDS: LACTULOSE 20G/30ML UDC PO SCH ×3 (05:36→21:10)
[2019-04-16] MEDS: METOCLOPRAMIDE HCL 10MG/2ML VIAL IV SCH ×4 (05:36→23:30)
[2019-04-16] MEDS: BACLOFEN 10MG TABLET PO SCH ×3 (05:36→21:10)
[2019-04-16] MEDS: ENALAPRIL 1.25MG/ML VIAL 1ML IV SCH ×4 (05:36→23:13)
[2019-04-16] MEDS: NOREPINEPHRINE 32 MG in DEXT 5% WATER 468 ML IV PRN (05:40)
[2019-04-16 06:05] LABS: BASOPHILS % 0.3 % (0.0-2.0); EOSINOPHILS % 1.9 % (0.0-5.0); HEMATOCRIT. 27.5 % (36.0-48.0); HEMOGLOBIN. 8.5 g/dL (12.0-16.0); LYMPHOCYTES % 8.6 % (20.0-50.0); MEAN CORPUSCULAR HEMOGLOBIN 26.6 pg (28.0-32.0); MEAN CORPUSCULAR VOLUME 85.9 fL (81.0-99.0); MEAN PLATELET VOLUME 8.3 fl (7.4-10.4); MONOCYTES % 5.4 % (2.0-8.0); NEUTROPHILS % 83.8 % (40.0-76.0); PLATELET 334 x1000/uL (130-400); RED BLOOD CELL COUNT 3.21 mill/uL (4.2-5.4); RED CELL DISTRIBUTION WIDTH 19.1 % (11.6-14.6)
[2019-04-16] MEDS: METRONIDAZOLE 500 MG PREMIX 100 ML IV SCH ×2 (06:07→20:46)
[2019-04-16] MEDS ORDERED: FUROSEMIDE 100MG/10ML VIAL IVP NR (07:30)
[2019-04-16] MEDS ORDERED: SODIUM BICARBONATE 8.4% 1 MEQ/ML 50ML SYR IV NR (07:30)
[2019-04-16] MEDS ORDERED: DEXTROSE 50% WATER 50ML SYRINGE IV NR (07:30)
[2019-04-16] MEDS ORDERED: INSULIN REGULAR (HUMULIN R) UD 100 UNITS/ML SYR IV NR (08:00)
[2019-04-16] MEDS: FAMOTIDINE 20MG/2ML VIAL IV SCH (08:09)
[2019-04-16] MEDS: FOLIC ACID/VITAMIN B COMP W-C TABLET PO SCH (08:10)
[2019-04-16] MEDS: PREGABALIN 25MG CAPSULE PO SCH ×2 (08:10→20:42)
[2019-04-16] MEDS: NYSTATIN POWDER 15GM TOP SCH ×3 (08:11→16:15)
[2019-04-16] MEDS ORDERED: INSULIN REGULAR (HUMULIN R) 300UNITS/3ML IV NR (08:15)
[2019-04-16] MEDS: LEVOTHYROXINE SODIUM 100 MCG/ VIAL IV SCH (08:42)
[2019-04-16] MEDS: MEROPENEM 500MG in NORMAL SALINE 50ML IV SCH (08:42)
[2019-04-16 10:03] LABS: CLARITY URINE TURBID (CLEAR); COLOR URINE YELLOW (YELLOW); KETONES URINE NEGATIVE (NEGATIVE); LEUKOCYTE ESTERASE URINE 3+ (NEGATIVE); NITRITE URINE NEGATIVE (NEGATIVE); OCCULT BLOOD URINE 3+ (NEGATIVE); PH URINE 6.5 (4.5-8.0); PROTEIN URINE 2+ (NEGATIVE); SPECIFIC GRAVITY URINE 1.011 (1.005-1.030); UROBILINOGEN URINE 0.2 E.U./dL (0.2-1.0)
[2019-04-16] MEDS ORDERED: PROPOFOL 10MG/ML 100ML 100 ML IV PRN (11:00)
[2019-04-16] MEDS ORDERED: ETOMIDATE 2MG/ML 10ML VIAL IV ONE (11:06)
[2019-04-16] MEDS ORDERED: SODIUM BICARBONATE 4% (2.4MEQ) 5ML VIAL IV ONE (11:12)
[2019-04-16] MEDS ORDERED: LIDOCAINE HCL 1% 20ML VIAL (Pyxis) INJ ONE (11:12)
[2019-04-16 12:02] LABS: BG CARBOXYHEMOGLOBIN 0.3 % (0.5-1.5); BG DEOXYHEMOGLOBIN 2.7 % (0.0-5.0); BG FRACTION INSPIRED OXYGEN 60; BG HCO3 ACT 17.2 mmol/L (22.0-26.0); BG METHEMOGLOBIN 0.3 % (0.0-1.5); BG OXYGEN SATURATION 97.3 % (92.0-98.5); BG OXYHEMOGLOBIN 96.7 % (94.0-97.0); BG PCO2 29.6 mmHg (35.0-45.0); BG PH 7.382 (7.350-7.450); BG PO2 106.7 mmHg (75.0-100.0); BG SAMPLE SITE RIGHT RADIAL; BG TIDAL VOLUME(mL) 500 mL; BG TOTAL HEMOGLOBIN 9.2 g/dL (12.0-18.0); BG VENT MODE VENT - A/C; BG VENT RATE 14 set
[2019-04-16] MEDS: FENTANYL CITRATE/PF 500 MCG in SODIUM CHLORIDE 0.9% 40 ML IV PRN ×2 (12:07→20:25)
[2019-04-16 12:10] LABS: BASOPHILS % 0.7 % (0.0-2.0); EOSINOPHILS % 1.7 % (0.0-5.0); HEMATOCRIT. 28.7 % (36.0-48.0); HEMOGLOBIN. 8.9 g/dL (12.0-16.0); LYMPHOCYTES % 8.3 % (20.0-50.0); MEAN CORPUSCULAR HEMOGLOBIN 26.6 pg (28.0-32.0); MEAN CORPUSCULAR VOLUME 85.2 fL (81.0-99.0); MONOCYTES % 6.6 % (2.0-8.0); NEUTROPHILS % 82.7 % (40.0-76.0); PLATELET 362 x1000/uL (130-400); RED BLOOD CELL COUNT 3.36 mill/uL (4.2-5.4); RED CELL DISTRIBUTION WIDTH 18.9 % (11.6-14.6)
[2019-04-16] MEDS: FLUCONAZOLE 200 MG/100ML BAG 100 ML IV SCH (13:37)
[2019-04-16] MEDS: ENOXAPARIN 30MG/0.3ML SYR SUBCUT SCH (13:37)
[2019-04-16] MEDS ORDERED: METRONIDAZOLE 500 MG PREMIX 100 ML IV SCH (15:00)
[2019-04-16] MEDS: PHENYLEPHRINE 40 MG in DEXT 5% WATER 246 ML IV PRN (16:36)
[2019-04-17] VITALS (98 sets, daily range): BP systolic 53–153; BP diastolic 35–87
[2019-04-17] MEDS: PHENYLEPHRINE 40 MG in DEXT 5% WATER 246 ML IV PRN (00:10)
[2019-04-17] MEDS: FENTANYL CITRATE/PF 500 MCG in SODIUM CHLORIDE 0.9% 40 ML IV PRN (02:31)
[2019-04-17] MEDS: PHENYLEPHRINE 80 MG in DEXT 5% WATER 492 ML IV PRN ×3 (02:59→19:13)
[2019-04-17 05:26] LABS: EOSINOPHILS % 1.8 % (0.0-5.0); HEMATOCRIT. 26.2 % (36.0-48.0); HEMOGLOBIN. 8.3 g/dL (12.0-16.0); LYMPHOCYTES % 9.7 % (20.0-50.0); MEAN CORPUSCULAR VOLUME 84.9 fL (81.0-99.0); MEAN PLATELET VOLUME 8.2 fl (7.4-10.4); MONOCYTES % 4.7 % (2.0-8.0); NEUTROPHILS % 83.8 % (40.0-76.0); PLATELET 205 x1000/uL (130-400); RED BLOOD CELL COUNT 3.09 mill/uL (4.2-5.4); RED CELL DISTRIBUTION WIDTH 18.8 % (11.6-14.6)
[2019-04-17] MEDS: ENALAPRIL 1.25MG/ML VIAL 1ML IV SCH (05:35)
[2019-04-17] MEDS: LACTULOSE 20G/30ML UDC PO SCH ×3 (05:43→21:23)
[2019-04-17] MEDS: METOCLOPRAMIDE HCL 10MG/2ML VIAL IV SCH ×4 (05:43→23:40)
[2019-04-17] MEDS: BACLOFEN 10MG TABLET PO SCH (05:43)
[2019-04-17 07:45] LABS: BG BASE EXCESS 0.1 mmol/L (-2.0-2.0); BG CARBOXYHEMOGLOBIN 0.2 % (0.5-1.5); BG DEOXYHEMOGLOBIN 1.4 % (0.0-5.0); BG FRACTION INSPIRED OXYGEN 50; BG HCO3 ACT 22.3 mmol/L (22.0-26.0); BG METHEMOGLOBIN 0.1 % (0.0-1.5); BG OXYGEN SATURATION 98.6 % (92.0-98.5); BG OXYHEMOGLOBIN 98.3 % (94.0-97.0); BG PCO2 28.6 mmHg (35.0-45.0); BG PH 7.509 (7.350-7.450); BG PO2 140.4 mmHg (75.0-100.0); BG SAMPLE SITE RIGHT RADIAL; BG TIDAL VOLUME(mL) 500 mL; BG TOTAL HEMOGLOBIN 11.4 g/dL (12.0-18.0); BG VENT MODE VENT - A/C; BG VENT RATE 14 set
[2019-04-17] MEDS ORDERED: LACTULOSE 20G/30ML UDC PO SCH (07:45)
[2019-04-17] MEDS: LEVOTHYROXINE SODIUM 100 MCG/ VIAL IV SCH (09:00)
[2019-04-17] MEDS: MEROPENEM 500MG in NORMAL SALINE 50ML IV SCH (09:17)
[2019-04-17] MEDS: METRONIDAZOLE 500 MG PREMIX 100 ML IV SCH ×2 (09:17→21:23)
[2019-04-17] MEDS: FOLIC ACID/VITAMIN B COMP W-C TABLET PO SCH (09:17)
[2019-04-17] MEDS: PREGABALIN 25MG CAPSULE PO SCH ×2 (09:17→21:24)
[2019-04-17] MEDS: FAMOTIDINE 20MG/2ML VIAL IV SCH (09:17)
[2019-04-17] MEDS: NYSTATIN POWDER 15GM TOP SCH ×3 (09:18→17:00)
[2019-04-17] MEDS: IPRATROPIUM/ALBUTEROL 0.5-3(2.5)MG/3ML NEB HHN SCH ×2 (14:43→20:59)
[2019-04-17] MEDS: FLUCONAZOLE 200 MG/100ML BAG 100 ML IV SCH (15:58)
[2019-04-17] MEDS ORDERED: BLOOD SUGAR DIAGNOSTIC STRIP TEST SCH (17:50)
[2019-04-17] MEDS ORDERED: INSULIN LISPRO 100 UNITS/ML SUBCUT SCH (18:20)
[2019-04-17] MEDS: BLOOD SUGAR DIAGNOSTIC STRIP TEST SCH (23:40)
[2019-04-17] MEDS: INSULIN LISPRO 100 UNITS/ML SUBCUT SCH (23:40)
[2019-04-18] VITALS (105 sets, daily range): BP systolic 42–156; BP diastolic 17–106
[2019-04-18] MEDS: PHENYLEPHRINE 80 MG in DEXT 5% WATER 492 ML IV PRN ×3 (02:42→17:36)
[2019-04-18] MEDS: IPRATROPIUM/ALBUTEROL 0.5-3(2.5)MG/3ML NEB HHN SCH ×4 (03:15→20:10)
[2019-04-18] MEDS: LACTULOSE 20G/30ML UDC PO SCH ×4 (05:32→23:42)
[2019-04-18] MEDS: METOCLOPRAMIDE HCL 10MG/2ML VIAL IV SCH ×4 (05:35→23:42)
[2019-04-18 07:17] LABS: INR 1.6; PROTHROMBIN TIME 16.1 sec (9.6-11.0)
[2019-04-18 07:24] LABS: HEMATOCRIT 29.8 % (36.0-48.0); HEMOGLOBIN 9.4 g/dL (12.0-16.0); MEAN CORPUSCULAR HEMOGLOBIN 26.9 pg (28.0-32.0); MEAN CORPUSCULAR VOLUME 85.1 fL (81.0-99.0); PLATELET 161 x1000/uL (130-400); RED CELL DISTRIBUTION WIDTH 18.8 % (11.6-14.6)
[2019-04-18 08:12] LABS: BG BASE EXCESS -9.5 mmol/L (-2.0-2.0); BG CARBOXYHEMOGLOBIN 0.3 % (0.5-1.5); BG DEOXYHEMOGLOBIN 2.8 % (0.0-5.0); BG FRACTION INSPIRED OXYGEN 40; BG HCO3 ACT 13.2 mmol/L (22.0-26.0); BG METHEMOGLOBIN 0.2 % (0.0-1.5); BG OXYGEN SATURATION 97.2 % (92.0-98.5); BG OXYHEMOGLOBIN 96.7 % (94.0-97.0); BG PCO2 20.6 mmHg (35.0-45.0); BG PH 7.424 (7.350-7.450); BG PO2 98.5 mmHg (75.0-100.0); BG SAMPLE SITE RIGHT RADIAL; BG TIDAL VOLUME(mL) 450 mL; BG TOTAL HEMOGLOBIN 10.3 g/dL (12.0-18.0); BG VENT MODE VENT - A/C; BG VENT RATE 12 set
[2019-04-18] MEDS: FOLIC ACID/VITAMIN B COMP W-C TABLET PO SCH (09:00)
[2019-04-18] MEDS: VASOPRESSIN 10 UNIT in SODIUM CHLORIDE 0.9% 99.5 ML IV PRN (09:16)
[2019-04-18] MEDS: NOREPINEPHRINE 32 MG in DEXT 5% WATER 468 ML IV PRN (09:17)
[2019-04-18] MEDS: PREGABALIN 25MG CAPSULE PO SCH ×2 (11:57→20:38)
[2019-04-18] MEDS: MEROPENEM 500MG in NORMAL SALINE 50ML IV SCH (11:57)
[2019-04-18] MEDS: METRONIDAZOLE 500 MG PREMIX 100 ML IV SCH ×2 (11:57→20:38)
[2019-04-18] MEDS: NYSTATIN POWDER 15GM TOP SCH ×3 (11:58→18:28)
[2019-04-18] MEDS: FAMOTIDINE 20MG/2ML VIAL IV SCH (11:58)
[2019-04-18] MEDS: LEVOTHYROXINE SODIUM 100 MCG/ VIAL IV SCH (11:58)
[2019-04-18] MEDS: BLOOD SUGAR DIAGNOSTIC STRIP TEST SCH ×3 (12:00→23:42)
[2019-04-18] MEDS: INSULIN LISPRO 100 UNITS/ML SUBCUT SCH ×3 (12:00→23:42)
[2019-04-18 12:49] LABS: INR 1.9; PROTHROMBIN TIME 18.7 sec (9.6-11.0)
[2019-04-18] MEDS ORDERED: BISACODYL 10MG SUPP PR PRN (14:15)
[2019-04-18] MEDS: FLUCONAZOLE 200 MG/100ML BAG 100 ML IV SCH (15:39)
[2019-04-18] MEDS ORDERED: VANCOMYCIN 750 MG PREMIX 150 ML IV NR (17:30)
[2019-04-19] VITALS (104 sets, daily range): BP systolic 32–169; BP diastolic 13–117
[2019-04-19] MEDS: DEXTROSE 50% WATER 50ML SYRINGE IV PRN (00:38)
[2019-04-19] MEDS: PHENYLEPHRINE 80 MG in DEXT 5% WATER 492 ML IV PRN ×3 (00:41→14:50)
[2019-04-19 02:05] LABS: BG BASE EXCESS -21.5 mmol/L (-2.0-2.0); BG CARBOXYHEMOGLOBIN 0.3 % (0.5-1.5); BG DEOXYHEMOGLOBIN 10.1 % (0.0-5.0); BG FRACTION INSPIRED OXYGEN 40; BG HCO3 ACT 6.8 mmol/L (22.0-26.0); BG METHEMOGLOBIN 0.2 % (0.0-1.5); BG OXYGEN SATURATION 89.8 % (92.0-98.5); BG OXYHEMOGLOBIN 89.4 % (94.0-97.0); BG PCO2 23.3 mmHg (35.0-45.0); BG PH 7.083 (7.350-7.450); BG PO2 83.5 mmHg (75.0-100.0); BG SAMPLE SITE RIGHT RADIAL; BG TIDAL VOLUME(mL) 450 mL; BG TOTAL HEMOGLOBIN 10.2 g/dL (12.0-18.0); BG VENT MODE VENT - A/C; BG VENT RATE 14 set
[2019-04-19] MEDS: IPRATROPIUM/ALBUTEROL 0.5-3(2.5)MG/3ML NEB HHN SCH ×4 (02:13→20:49)
[2019-04-19] MEDS ORDERED: SODIUM BICARBONATE 8.4% 1 MEQ/ML 50ML SYR IV NR ×2 (02:15)
[2019-04-19] MEDS: VASOPRESSIN 10 UNIT in SODIUM CHLORIDE 0.9% 99.5 ML IV PRN ×6 (02:29→23:56)
[2019-04-19] MEDS: SODIUM BICARBONATE 150 MEQ in DEXTROSE 5% WATER 1,000 ML IV SCH (03:51)
[2019-04-19] MEDS: LACTULOSE 20G/30ML UDC PO SCH ×4 (05:22→23:28)
[2019-04-19] MEDS: BLOOD SUGAR DIAGNOSTIC STRIP TEST SCH ×4 (05:22→23:28)
[2019-04-19] MEDS: METOCLOPRAMIDE HCL 10MG/2ML VIAL IV SCH ×4 (05:22→23:28)
[2019-04-19] MEDS: INSULIN LISPRO 100 UNITS/ML SUBCUT SCH ×4 (05:25→23:30)
[2019-04-19 05:46] LABS: HEMATOCRIT. 28.5 % (36.0-48.0); HEMOGLOBIN. 8.7 g/dL (12.0-16.0); MEAN CORPUSCULAR HEMOGLOBIN 26.9 pg (28.0-32.0); MEAN CORPUSCULAR VOLUME 88.1 fL (81.0-99.0); RED BLOOD CELL COUNT 3.23 mill/uL (4.2-5.4); RED CELL DISTRIBUTION WIDTH 18.9 % (11.6-14.6)
[2019-04-19 05:52] LABS: INR 3.6; PROTHROMBIN TIME 35.2 sec (9.6-11.0)
[2019-04-19] MEDS: NOREPINEPHRINE 32 MG in DEXT 5% WATER 468 ML IV PRN (06:46)
[2019-04-19 07:02] LABS: MEAN PLATELET VOLUME 9.1 fl (7.4-10.4); PLATELET 80 x1000/uL (130-400)
[2019-04-19 07:04] LABS: NUCLEATED RED BLOOD CELLS 22 /100 WBC; PLATELET ESTIMATE DECREASED
[2019-04-19] MEDS ORDERED: ALBUMIN HUMAN 25GM/100ML (25%) IV NR (08:00)
[2019-04-19] MEDS: MEROPENEM 500MG in NORMAL SALINE 50ML IV SCH (08:15)
[2019-04-19] MEDS: NYSTATIN POWDER 15GM TOP SCH ×3 (08:16→18:16)
[2019-04-19] MEDS: PREGABALIN 25MG CAPSULE PO SCH ×2 (08:16→20:22)
[2019-04-19] MEDS: FAMOTIDINE 20MG/2ML VIAL IV SCH (08:16)
[2019-04-19] MEDS: METRONIDAZOLE 500 MG PREMIX 100 ML IV SCH ×2 (08:16→20:22)
[2019-04-19] MEDS: FOLIC ACID/VITAMIN B COMP W-C TABLET PO SCH (08:16)
[2019-04-19] MEDS: LEVOTHYROXINE SODIUM 100 MCG/ VIAL IV SCH (08:18)
[2019-04-19 08:27] LABS: BG BASE EXCESS -9.8 mmol/L (-2.0-2.0); BG CARBOXYHEMOGLOBIN 0.3 % (0.5-1.5); BG DEOXYHEMOGLOBIN 1.9 % (0.0-5.0); BG FRACTION INSPIRED OXYGEN 100; BG HCO3 ACT 14.6 mmol/L (22.0-26.0); BG METHEMOGLOBIN 0.2 % (0.0-1.5); BG OXYGEN SATURATION 98.1 % (92.0-98.5); BG OXYHEMOGLOBIN 97.6 % (94.0-97.0); BG PCO2 26.9 mmHg (35.0-45.0); BG PH 7.351 (7.350-7.450); BG PO2 137.4 mmHg (75.0-100.0); BG SAMPLE SITE RIGHT RADIAL; BG TIDAL VOLUME(mL) 450 mL; BG TOTAL HEMOGLOBIN 9.6 g/dL (12.0-18.0); BG VENT MODE VENT - A/C; BG VENT RATE 18 set
[2019-04-19] MEDS: ALBUMIN HUMAN 25GM/100ML (25%) IV SCH ×2 (11:47→19:50)
[2019-04-19] MEDS ORDERED: AMIKACIN SULFATE 250 MG in SODIUM CHLORIDE 0.9% 100 ML IV SCH (14:00)
[2019-04-19] MEDS: FLUCONAZOLE 200 MG/100ML BAG 100 ML IV SCH (14:37)
[2019-04-20] VITALS (114 sets, daily range): BP systolic 57–163; BP diastolic 22–116
[2019-04-20] MEDS: SODIUM BICARBONATE 150 MEQ in DEXTROSE 5% WATER 1,000 ML IV SCH (00:53)
[2019-04-20] MEDS: PHENYLEPHRINE 80 MG in DEXT 5% WATER 492 ML IV PRN (01:25)
[2019-04-20] MEDS: IPRATROPIUM/ALBUTEROL 0.5-3(2.5)MG/3ML NEB HHN SCH ×4 (01:50→20:44)
[2019-04-20] MEDS: BLOOD SUGAR DIAGNOSTIC STRIP TEST SCH ×3 (05:29→17:50)
[2019-04-20] MEDS: METOCLOPRAMIDE HCL 10MG/2ML VIAL IV SCH ×3 (05:29→17:22)
[2019-04-20] MEDS: INSULIN LISPRO 100 UNITS/ML SUBCUT SCH ×3 (05:29→17:50)
[2019-04-20] MEDS: LACTULOSE 20G/30ML UDC PO SCH ×3 (05:30→17:22)
[2019-04-20 08:01] LABS: BG BASE EXCESS 0.1 mmol/L (-2.0-2.0); BG CARBOXYHEMOGLOBIN 0.6 % (0.5-1.5); BG DEOXYHEMOGLOBIN 1.3 % (0.0-5.0); BG FRACTION INSPIRED OXYGEN 100; BG HCO3 ACT 21.7 mmol/L (22.0-26.0); BG METHEMOGLOBIN 0.3 % (0.0-1.5); BG OXYGEN SATURATION 98.7 % (92.0-98.5); BG OXYHEMOGLOBIN 97.8 % (94.0-97.0); BG PCO2 23.2 mmHg (35.0-45.0); BG PH 7.588 (7.350-7.450); BG PO2 148.9 mmHg (75.0-100.0); BG SAMPLE SITE RIGHT RADIAL; BG TIDAL VOLUME(mL) 450 mL; BG TOTAL HEMOGLOBIN 6.8 g/dL (12.0-18.0); BG VENT MODE VENT - A/C; BG VENT RATE 18 set
[2019-04-20] MEDS: FAMOTIDINE 20MG/2ML VIAL IV SCH (09:41)
[2019-04-20] MEDS: LEVOTHYROXINE SODIUM 100 MCG/ VIAL IV SCH (09:41)
[2019-04-20] MEDS: PREGABALIN 25MG CAPSULE PO SCH ×2 (09:41→20:46)
[2019-04-20] MEDS: FOLIC ACID/VITAMIN B COMP W-C TABLET PO SCH (09:41)
[2019-04-20] MEDS: METRONIDAZOLE 500 MG PREMIX 100 ML IV SCH ×2 (09:42→20:46)
[2019-04-20] MEDS: VASOPRESSIN 10 UNIT in SODIUM CHLORIDE 0.9% 99.5 ML IV PRN ×2 (09:42→19:55)
[2019-04-20] MEDS: MEROPENEM 500MG in NORMAL SALINE 50ML IV SCH (09:42)
[2019-04-20] MEDS: NYSTATIN POWDER 15GM TOP SCH ×3 (09:43→15:56)
[2019-04-20] MEDS: DEXTROSE 50% WATER 50ML SYRINGE IV PRN ×2 (12:23→18:29)
[2019-04-20 13:35] LABS: MEAN CORPUSCULAR HEMOGLOBIN 27.1 pg (28.0-32.0); MEAN CORPUSCULAR VOLUME 87.5 fL (81.0-99.0); MEAN PLATELET VOLUME 9.6 fl (7.4-10.4); PROTHROMBIN TIME 59.3 sec (9.6-11.0); RED BLOOD CELL COUNT 2.26 mill/uL (4.2-5.4); RED CELL DISTRIBUTION WIDTH 18.2 % (11.6-14.6)
[2019-04-20 13:40] LABS: HEMOGLOBIN. 6.1 g/dL (12.0-16.0)
[2019-04-20 13:41] LABS: HEMATOCRIT. 19.7 % (36.0-48.0); PLATELET 26 x1000/uL (130-400)
[2019-04-20 13:43] LABS: INR 6.3
[2019-04-21] VITALS (23 sets, daily range): BP systolic 53–170; BP diastolic 19–55
[2019-04-21] MEDS: INSULIN LISPRO 100 UNITS/ML SUBCUT SCH
[2019-04-21] MEDS: BLOOD SUGAR DIAGNOSTIC STRIP TEST SCH ×2 (00:13→05:53)
[2019-04-21] MEDS: DEXTROSE 50% WATER 50ML SYRINGE IV PRN ×2 (00:30→00:56)
[2019-04-21] MEDS: LACTULOSE 20G/30ML UDC PO SCH ×2 (00:30→05:53)
[2019-04-21] MEDS: METOCLOPRAMIDE HCL 10MG/2ML VIAL IV SCH ×2 (00:31→05:53)
[2019-04-21] MEDS: VASOPRESSIN 10 UNIT in SODIUM CHLORIDE 0.9% 99.5 ML IV PRN ×2 (00:45→06:32)
[2019-04-21] MEDS: PHENYLEPHRINE 80 MG in DEXT 5% WATER 492 ML IV PRN (01:23)
[2019-04-21] MEDS: IPRATROPIUM/ALBUTEROL 0.5-3(2.5)MG/3ML NEB HHN SCH (01:43)
[2019-04-21 03:57] LABS: CHLORIDE 89 mEq/L (98-107)
[2019-04-21 04:10] LABS: HEMATOCRIT. 21.3 % (36.0-48.0); MEAN CORPUSCULAR HEMOGLOBIN 26.4 pg (28.0-32.0); MEAN CORPUSCULAR VOLUME 92.1 fL (81.0-99.0); MEAN PLATELET VOLUME 9.4 fl (7.4-10.4); RED BLOOD CELL COUNT 2.31 mill/uL (4.2-5.4); RED CELL DISTRIBUTION WIDTH 17.2 % (11.6-14.6)
[2019-04-21 04:15] LABS: HEMOGLOBIN. 6.1 g/dL (12.0-16.0); PLATELET 17 x1000/uL (130-400)
[2019-04-21] MEDS ORDERED: NOREPINEPHRINE 16 MG in DEXT 5% WATER 234 ML IV PRN ×2 (06:06→06:30)
[2019-04-21 15:43] LABS: NUCLEATED RED BLOOD CELLS 22 /100 WBC
[2019-04-21 15:44] LABS: PLATELET ESTIMATE MARKEDLY DECREASED
[2019-04-21 15:48] LABS: NUCLEATED RED BLOOD CELLS 39 /100 WBC
[2019-04-21 17:13] LABS: PLATELET ESTIMATE MARKEDLY DECREASED
== END 2019-04-21 06:40 | disposition expired | DRG 870 ==
LOC: 6EST 12:08 → 5EST 04-11 17:08 → CVICU 04-14 09:05
PROVIDERS: ADMIT Internal Medicine; ATTEND Internal Medicine
PROC: 02HV33Z Insertion of Infusion Device into Superior Vena Cava, Percutaneous Approach (ICD-10-PCS; 2019-04-13)
PROC: B548ZZA Ultrasonography of Superior Vena Cava, Guidance (ICD-10-PCS; 2019-04-13)
PROC: B5181ZA Fluoroscopy of Superior Vena Cava using Low Osmolar Contrast, Guidance (ICD-10-PCS; 2019-04-13)
PROC: 5A1955Z Respiratory Ventilation, Greater than 96 Consecutive Hours (ICD-10-PCS; principal; 2019-04-16)
PROC: 0BH17EZ Insertion of Endotracheal Airway into Trachea, Via Natural or Artificial Opening (ICD-10-PCS; 2019-04-16)
PROC: 5A1D70Z Performance of Urinary Filtration, Intermittent, Less than 6 Hours Per Day (ICD-10-PCS; 2019-04-16)
PROC: 4A00X4Z Measurement of Central Nervous Electrical Activity, External Approach (ICD-10-PCS; 2019-04-16)
PROC: 02HV33Z Insertion of Infusion Device into Superior Vena Cava, Percutaneous Approach (ICD-10-PCS; 2019-04-16)
PROC: B548ZZA Ultrasonography of Superior Vena Cava, Guidance (ICD-10-PCS; 2019-04-16)
PROC: B5181ZA Fluoroscopy of Superior Vena Cava using Low Osmolar Contrast, Guidance (ICD-10-PCS; 2019-04-16)
PROC: 30233K1 Transfusion of Nonautologous Frozen Plasma into Peripheral Vein, Percutaneous Approach (ICD-10-PCS; 2019-04-20)
PROC: 30233N1 Transfusion of Nonautologous Red Blood Cells into Peripheral Vein, Percutaneous Approach (ICD-10-PCS; 2019-04-20)
DX: A41.9 Sepsis, unspecified organism (principal); E43 Unspecified severe protein-calorie malnutrition; G92 Toxic encephalopathy; R65.21 Severe sepsis with septic shock; J96.00 Acute respiratory failure, unspecified whether with hypoxia or hypercapnia; K72.00 Acute and subacute hepatic failure without coma; D65 Disseminated intravascular coagulation [defibrination syndrome]; N17.0 Acute kidney failure with tubular necrosis; E11.52 Type 2 diabetes mellitus with diabetic peripheral angiopathy with gangrene; D68.4 Acquired coagulation factor deficiency; B37.49 Other urogenital candidiasis; E87.0 Hyperosmolality and hypernatremia; K56.7 Ileus, unspecified; D62 Acute posthemorrhagic anemia; Z66 Do not resuscitate; E11.40 Type 2 diabetes mellitus with diabetic neuropathy, unspecified; E83.51 Hypocalcemia; E87.6 Hypokalemia; E86.0 Dehydration; M48.00 Spinal stenosis, site unspecified; E11.621 Type 2 diabetes mellitus with foot ulcer; D52.9 Folate deficiency anemia, unspecified; B19.20 Unspecified viral hepatitis C without hepatic coma; E03.9 Hypothyroidism, unspecified; E87.5 Hyperkalemia; F17.210 Nicotine dependence, cigarettes, uncomplicated; I10 Essential (primary) hypertension; I99.8 Other disorder of circulatory system; K74.60 Unspecified cirrhosis of liver; L97.529 Non-pressure chronic ulcer of other part of left foot with unspecified severity; T36.8X5A Adverse effect of other systemic antibiotics, initial encounter; Z78.1 Physical restraint status; Y92.89 Other specified places as the place of occurrence of the external cause; Z85.41 Personal history of malignant neoplasm of cervix uteri; Z89.612 Acquired absence of left leg above knee; Z68.30 Body mass index [BMI] 30.0-30.9, adult
CPT/HCPCS: 36415; 36573; 36600; 70551; 71045; 73630; 73721; 74176; 76937; 80048; 80053; 80061; 80076; 80202; 81003; 82140; 82270; 82375; 82550; 82570; 82607; 82746; 82805; 82962; 83036; 83540; 83550; 83605; 83735; 84100; 84133; 84134; 84300; 84439; 84443; 84478; 84481; 85025; 85027; 85362; 85384; 85651; 86140; 86850; 86900; 86920; 86927; 87106; 93306; 93970; 94002; A6261; C1725; C1752; C1893; J0278; J1450; J1642; J1644; J1650; J1815; J1940; J2060; J2185; J2370; J2543; J2704; J2765; J3010; J3370; J3480; J3490; J7030; J7040; J7042; J7050; J7060; J7070; J7620; P9016; P9017; P9047; Q9963; A4315